=== PATIENT | male | born 1980 | race Caucasian/White ===

== ENCOUNTER 2022-06-12 08:41 | Emergency (ER) | payer OTHER, SELFPAY ==
[2022-06-12 09:59] VITALS: BP 126/79; PULSE 101; RESP 18; TEMP 37.7; O2SAT 101
--- NOTE | 2022-06-12 10:19 | ED.GENADULT ---
HPI - General Adult General Chief complaint: Upper Respiratory Infection Stated complaint: flu like symptoms Time Seen by Provider: 06/12/22 10:19 Source: patient, RN notes reviewed and old records reviewed Mode of arrival: ambulatory Limitations: no limitations History of Present Illness HPI narrative: 41 year old male presents to [facility] with complaints of having a scratchy throat 3 days ago which has now resolved but continues with cough and congestion. Patient reports that he has been running a fever with highest fever noted to ne 101.8F, has been taking Tylenol and also DayQuil for his symptoms.Patient reports some chills and sweats but denies any body aches., Patient has not had COVID vaccinations or Flu shot. Patient reports that he has been expectorating some greenish phlegm and has had sinus drainage also denies any history of seasonal allergies. MD complaint: cough and congestion Onset (ago): day(s) (3) Severity scale (1-10): 3 Treatments prior to arrival: other (DayQuil and Tylenol) Related Data Allergies Allergy/AdvReac Type Severity Reaction Status Date / Time No Known Allergies Allergy Verified 06/12/22 10:13 Review of Systems Review of Systems: CONSTITUTIONAL: Reports malaise, chills, sweats, or fever. EYES: Denies visual changes, redness, or discharge. ENT: Reports rhinorrhea, congestion, no sinus pain,no otalgia scratchy throat which has resolved. CARDIOVASCULAR: Denies chest pain, palpitations, or edema. RESPIRATORY: Reports cough.? Denies acute dyspnea. GASTROINTESTINAL: Denies abdominal pain, nausea, vomiting, diarrhea SKIN: Denies rash or itching. MUSCULOSKELETAL: Denies myalgia. NEUROLOGIC: Denies headache. All systems reviewed & are unremarkable except as noted in HPI and below PMFSH Surgical History Surgical History (Updated 06/12/22 @ 10:32 by Abby Fernandez NP) History of tonsillectomy and adenoidectomy Family History Family History (Updated 11/07/14 @ 09:36 by DOCTOR UNKNOWN) Other Diabetes mellitus Social History Social History Smoking status: Smoker, status unknown Alcohol intake: current Comments At time of signature, agree with nursing past medical, surgical, social and family history. There is no relevant family history pertinent to the presenting complaint Exam Narrative: GENERAL: Well-appearing, well-nourished, and in no acute distress. HEAD: Normocephalic EYES: PERRLA, conjunctivae clear ENT: Nares clear, turbinates edematous and erythematous, clear discharge. Mucous membranes moist. TM pearly hernandez with dull light reflex bilaterally; no tragal tenderness. Oropharynx erythematous without lesions. Tonsils not present and throat without exudate, no drooling, no hoarseness, no trismus, uvula midline.some post nasal drainage noted NECK: Supple. No lymphadenopathy CHEST: Clear to auscultation, breath sounds equal. No wheezing, rhonchi, rales, or stridor. No respiratory distress, speaks in full sentences. no tachypnea noted, SAO2 100% on room air HEART: Regular rate and rhythm. No murmur heard. SKIN: Warm, dry, no rash. NEURO: Alert and oriented x3. PSYCH: Normal mood and affect Course Course Emergency Course: Patient is aware of diagnosis, understands and agrees to treatment plan.? Anticipatory guidance given.? Patient agrees to follow-up as directed and is aware of reasons to seek care at the emergency department. Portions of this record may have been created with voice recognition software Level of Care: Express Care Visit Vital Signs Vital signs: Vital Signs Temperature 37.7 C H 06/12/22 09:59 Pulse Rate 101 H 06/12/22 09:59 Respiratory Rate 18 06/12/22 09:59 Blood Pressure 126/79 06/12/22 09:59 Pulse Oximetry 101 H 06/12/22 09:59 Oxygen Delivery Room Air 06/12/22 09:59 Temperature 37.7 C H 06/12/22 09:59 Pulse Rate 101 H 06/12/22 09:59 Respiratory Rate 18 06/12/22 09:59 Blood Pressure 1
== END 2022-06-12 10:41 | disposition home or self-care (01) ==
PROVIDERS: Emergency Provider Registered Nurse
DX: J06.9 Acute upper respiratory infection, unspecified (principal)
CPT/HCPCS: 99213; G0463

== ENCOUNTER 2024-07-15 11:00 | Emergency (ER) | payer OTHER, SELFPAY ==
--- NOTE | ~2024-07-15 | XR_ITS ---
XR foot LT min 3V Ordering provider: Mandeep Sewell APRN History: . heel pain/redness swelling over achilles . Comparison: None. FINDINGS: BONES: No acute fracture or dislocation. JOINT SPACES: Normal. No tarsal coalition. SOFT TISSUES: Ossification of the insertion of the tendo Achilles. IMPRESSION: No acute osseous abnormality left foot. Reviewed, dictated and finalized at location A.
--- NOTE | 2024-07-15 11:01 | ED.EXTPRO ---
HPI - Extremity Problem General Chief complaint: Extremity Problem,Nontraumatic Stated complaint: L foot pain Time Seen by Provider: 07/15/24 11:01 Source: patient Mode of arrival: ambulatory Limitations: no limitations History of Present Illness HPI Narrative: Henrik is a 43-year-old male patient presenting to the clinic today with complaints of left heel pain and foot swelling times 3-4 days. No fevers, chills, body aches. No injury to the left foot. Is concerned that he may have Achilles tendinitis or a heel spur. States he wears tennis shoes normally. No history of blood clotting disorders, denies hormone therapy, no recent long travel Related Data Allergies Allergy/AdvReac Type Severity Reaction Status Date / Time No Known Allergies Allergy Verified 07/15/24 11:05 Review of Systems Review of Systems: Pertinent positives per HPI. Patient denies any fever, chills, rash, headache, visual changes, dizziness, cough, runny nose, sore throat, shortness of breath, chest pain, palpitations, nausea, vomiting, diarrhea, constipation, abdominal pain, or any urinary issues. RITIKASH Surgical History Surgical History History of tonsillectomy and adenoidectomy Family History Family History (Updated 11/07/14 @ 09:36 by DOCTOR UNKNOWN) Other Diabetes mellitus Social History Social History Smoking status: Smoker, status unknown Alcohol intake: current Comments At the time of my signature, I reviewed and agree with the nursing past medical, surgical, social, and family history. There is no relevant family history pertinent to the patient complaint. Exam Narrative: General: Well-developed, well nourished, in no apparent distress Head: Normocephalic, atraumatic. Cardio: Regular rate and rhythm, s1 and s2 normal, no murmur appreciated. Resp: Clear to auscultation bilaterally, no rhonchi, rales, wheezing or rubs. Musculoskeletal: No deformity, pain with dorsal flexion against resistance to the posterior heel/ankle, tender to palpation over the Achilles tendon with localized redness and erythema, negative Solange sign, grossly normal range of motion, muscle strength strong and equal, peripheral pulse strong, 1+ pitting edema in the left foot, no cyanosis, very painful to ambulate, sitting in a wheelchair Course Course Emergency Course: Portions of this record may have been created with voice recognition software. Level of Care: Express Care Visit Vital Signs Vital signs: Vital Signs Temperature 36.9 C 07/15/24 11:13 Pulse Rate 114 H 07/15/24 11:13 Respiratory Rate 18 07/15/24 11:13 Blood Pressure 130/98 H 07/15/24 11:13 Pulse Oximetry 100 07/15/24 11:13 Oxygen Delivery Room Air 07/15/24 11:13 Temperature 36.9 C 07/15/24 11:13 Pulse Rate 114 H 07/15/24 11:13 Respiratory Rate 18 07/15/24 11:13 Blood Pressure 130/98 H 07/15/24 11:13 Pulse Oximetry 100 07/15/24 11:13 Oxygen Delivery Room Air 07/15/24 11:13 Vital signs reviewed MDM - Extremity (Nontraumatic) MDM Narrative Medical decision making narrative: At the time of visit patient is resting comfortably on the exam table. Patient appears to be nontoxic. Diagnostics: X-ray of the left foot shows no acute osseous abnormality. Does show some ossification of the insertion of Achilles tendon Plan: I suspect patient likely has Achilles tendinitis. Prescription for Medrol Dosepak was sent to the pharmacy. Use crutches as discussed. Doug wrap was applied Supportive measures were discussed with the patient and they voiced understanding discharge instructions and agrees to treatment plan. Return precautions reviewed Differential Diagnosis Differential diagnosis: Likely gout, cellulitis, superficial thrombophlebitis, lower extremity edema, deep vein thrombosis of lower extremity and other (Tendinitis, bone spur) Imaging Data Radiologist's impression: ITS Impressions Foot X-Ray 07/15/24 11:35 IMPRESSION: No acute osseous abnormality left foot. Discharge Plan Discharge Clinical Impression: Achilles tendinitis Qualifiers: Laterality: left Qualified Code(s): M76.62 - Achilles tendinitis, left leg Patient Disposition: Home Condition: Stable Instructions: Antibiotic Form, Achilles Tendinitis (ED), Calcific Tendinitis (ED) Additional Instructions: X-rays negative for any sign of fracture or malalignment-does show some ossification of the insertion of Achilles tendon Rest, ice, elevate, and wear doug wrap as directed Use crutches as directed Tylenol/motrin for pain as discussed. Take Medrol Dosepak as prescribed Gradually bear weight No running or sports until healed. Follow up with your PCP if symptoms persist more than 1 week. Patient Language: Wolof Prescriptions: New methylprednisolone [Medrol (Hiro)] 4 mg tablets,dose pack See Rx Instructions PO .COMPLEX Qty: 21 0RF Rx Instructions: orally per package directions Follow-up/Referrals: Eitan Buckner DPM [Physician] - 2 Days (Left Achilles tendinitis) PHYSICIAN,GROUNDSKEEPING MAINTENANCE [Primary Care Provider] - Time of Disposition: 11:43 Quality NIHSS Nursing Documentation ED NIHSS nursing documentation: reviewed/agree
--- OUTSIDE RECORDS SUMMARY | 2024-07-15 11:03 | XMS_ITS | Continuity of Care Document ---
Author Organization [facility] Address [address] [place] [address] Phone Care Team Providers Care Water Treatment Plant Operator Name Role Phone Justino Pryor Unavailable Unavailable Procedures Procedure Date Post-op Follow-up Visit Post-op Follow-up Visit Post-op Follow-up Visit Post-op Follow-up Visit Allegretto-Lasik Comanaged Allegretto-Lasik Comanaged No Charge Refractive Evaluation 010 Advance Directives Directive Yes / No Effective Date File Name No Information Encounters Encounter Description Practice Location Reason(s) For Visit Diagnoses Date Provider Providers Copied on Encounter [facility], [address] [place] [address] [address], [place], [place], [id number], [place] tel:[phone] [facility] No Information 0 Krishnasamy Justino. [address] [facility] [address], [address], [place]. tel:[phone] [facility], [address], [place], [place], [address], [place] tel:[phone] [facility] No Information 0 Krishnasamy Justino. [address] [facility] [address], [place], [address], [place]. tel:[phone] [facility], [address] [place] [address] [address], [place], [place], [id number], tel:[phone] [facility] No Information Apr-3 0-201 0 Krishnasamy Justino. [address] [place] [address], [facility], . tel:[phone] [facility], [address] [place] [address] [address], [place], [place], [address], tel:[phone] [facility] No Information May-2 3-201 0 Krishnasamy Justino. [address] [place] [address], [facility], . tel:[phone] [facility], [address] [place] [address] [address], [place], [place], [address], tel:[phone] [facility] No Information May-2 2-201 0 Krishnasamy Justino. [address] [place] [address], [facility], [place]. tel:[phone] Referring Provider: Justino leroy, [address] [place] [address], [facility]. tel:[phone] [facility], [address] [place] [address] [address], [place], [place], [address], tel:[phone] [facility] No Information May-1 4-201 0 Krishnasamy Justino. [address] [place] [address], [facility], [place]. tel:[phone] Family History Family Member Type Diagnosis Age At Onset No Information Payers Payer name Insurance type Covered democrat ID Authoriza tion(s) No Information Social History Type Description Quantity Date Captured Comments Sex Male Smoking Status No Information Chief Complaint And Reason For Visit No Information Reason For Referral Reason For Referral No Information History Of Present Illness Encounter Date Complaint History Of Prese nt Illness No Information Functional Status Date Functional Assessmen t No Information Instructions Date Instruction Additional Infor mation No Information Assessments Type Assessment Date No Information Patient Care Teams Name Effective Dates (start - stop) Status Members No Information
--- OUTSIDE RECORDS SUMMARY | 2024-07-15 11:03 | XMS_ITS | Continuity of Care Document ---
Author Organization [facility] Address [address] [place] [address] Phone Care Team Providers Care [employer] Consultant Name Role Phone Benedicto Lopez MD Unavailable Unavailable Allergies, Adverse Reactions, Alerts Substance Reaction Status Criticality No Known Allergies Active No Inform ation Medications Medication Instructions Dosage Effective Dates (start - stop) Status Comments No Drug Therapy Prescribed Procedures Procedure Date OFFICE/OUTPATIENT VISIT, EST PREV VISIT, NEW, AGE 18-39 OFFICE/OUTPATIENT VISIT, NEW Advance Directives Directive Yes / No Effective Date File Name No Information Encounters Encounter Description Practice Location Reason(s) For Visit Diagnoses Date Provider Providers Copied on Encounter OFFICE/OUTPA TIENT VISIT, EST [facility], [address] [place], [place], [id number], [place] tel:[phone] [facility] obesity1 (chief complaint) lab (chief complaint) sleep apnea1 (chief complaint) HLP (chief complaint) HyperlipidemiaBody mass index (BMI) 38.0-38.9, adult June- 0-201 7 John Diane. [address], [place], [place], [address] , [place]. tel:[phone] Referring Provider: Benedicto Lopez, [address], [place], [place], [address]. tel:[phone] PREV VISIT, NEW, AGE 18-39 [facility], [address], [place], [place], [address], [place] tel:[phone] [facility] Physical (chief complaint) Encounter for general adult medical exam w abnormal findingsBody mass index (BMI) 38.0-38.9, adultEdema May- 5201 7 John Diane. [address], [place], [place], [address] , [place]. tel:[phone] Family History Family Member Type Diagnosis Age At Onset Brother Problem (finding) Alive and well Father Problem (finding) Alive and well Mother Problem (finding) Alive and well Payers Payer name Insurance type Covered libertarian ID Authoriza tion(s) No Information Social History Type Description Quantity Date Captured Comments Alcohol Use Details Caffeine Use Details Unknown Tobacco Use Status Never smoked tobacco 2016 Smoking Status Never smoker Sex Male Vital Signs Date / Time: Height Weight BMI Pulse Rate Blood Pressure Temperature Respiratory Rate Body Surface Area Head Circumference BMI percentile Pulse Ox Inhaled Ox 4:33 PM 167.64 cm 236.80 lbs 38.2 2 kg/m eter (2) 76 /min 135/85 mm[Hg] 98.3 F 18 /min Chief Complaint And Reason For Visit From encounter dated '07/23/2016 15:30'. obesity1 (chief complaint). Description: Pt is overweight. His BMI is 38. Pt has been diet and exercising and his lab is ok. lab (chief complaint). Description: Pt has normal lab sleep apnea1 (chief complaint). Description: Pt denies any daytime fatigue or any snoring. Pt denies any breathing issue at night HLP (chief complaint). Description: Pt has mild high LDL. Rest of lab ok Plan Of Treatment Date Type Action Status No Information History Of Present Illness Encounter Date Complaint History Of Prese nt Illness obesity1 Pt is overweight . His BMI is 38. Pt has been diet and exercising and his lab is ok. lab Pt has normal la b sleep apnea1 Pt denies any da ytime fatigue or any snoring. Pt denies any breathing issue at night HLP Pt has mild high LDL. Rest of lab ok Physical Pt needs annual physical. Pt states that he has diffiuclty losing weight. pt wants to get his thyroid checked Pt diet and exercise but not able to lsoe weight. Pt states that he notices hand and foot swelling intermittently during last two years. Pt does not think there is connection with food or any activity. Pt denies any fatigue. Pt sleeps ok. Pt denies any snoring. Pt denies any other complaints Medications Administered Medication Instructions Dosage Effective Dates (start - stop) Status Comments No Drug Therapy Prescribed Instructions Date Instruction Additional Infor mation Prescribed Activity and Exercise Education Related to Dietary Surveillance and Counseling Prescribed Diet Educ ation/Lifestyle Education Regarding Diet Related to Dietary Surveillance and Counseling Prescribed Activity and Exercise Education Related to Dietary Surveillance and Counseling Prescribed Diet Educ ation/Lifestyle Education Regarding Diet Related to Dietary Surveillance and Counseling Assessments Type Assessment Date assessment Hyperlipidemia assessment Body mass index (BMI) 38.0-38.9, adult Mental Status Date Cognitive Assessment Orientation - [employer] ed to time, place, person, situation.
--- OUTSIDE RECORDS SUMMARY | 2024-07-15 11:08 | XMS_ITS | Continuity of Care Document ---
Author Organization [facility] Address [address] [place] [address] [place] [address] Phone Care Team Providers Care Box Annealer Name Role Phone Benedicto Lopez MD Unavailable [...] Copied on Encounter OFFICE/OUTPA TIENT VISIT, EST [facility], [address] [place], [address], [place] tel:[phone] [facility] obesity1 (chief complaint) lab (chief complaint) sleep apnea1 (chief complaint) HLP (chief complaint) HyperlipidemiaBody mass index (BMI) 38.0-38.9, adult June- 0-201 7 John Diane. [address], [place], [place], [address] , [place]. tel:[phone] Referring Provider: Benedicto Lopez, [address], [place], [place], [address]. tel:[phone] PREV VISIT, NEW, AGE 18-39 [facility], [address], [place], [place], [address], [place] tel:[phone] [facility] Physical (chief complaint) Encounter for general adult medical exam w abnormal findingsBody mass index (BMI) 38.0-38.9, adultEdema May- 5201 7 John Diane. [address], [place], [place], [address] , [place]. tel:[phone] Family History Family Member Type Diagnosis Age [...] Mental Status Date Cognitive Assessment Orientation - Rose ed to time, place, person, situation.
--- OUTSIDE RECORDS SUMMARY | 2024-07-15 11:08 | XMS_ITS | Continuity of Care Document ---
Author Organization [facility] Address [address] [place] [address] Phone Care Team Providers Care Lottery Office Manager Name Role Phone Justino Pryor Unavailable Unavailable Procedures Procedure Date Post-op Follow-up Visit Post-op Follow-up Visit Post-op Follow-up Visit Post-op Follow-up Visit Allegretto-Lasik Comanaged Allegretto-Lasik Comanaged No Charge Refractive Evaluation 010 Advance Directives Directive Yes / No Effective Date File Name No Information Encounters Encounter Description Practice Location Reason(s) For Visit Diagnoses Date Provider Providers Copied on Encounter [facility], [address] [place] [address] [address], [place], [place], [id number], [place] tel:[phone] [facility] No Information 0 Krishnasamy Justino. [address] [facility], [address], [place]. tel:[phone] [facility], [address], [place], [place], [address], [place] tel:[phone] [facility] No Information 0 Krishnasamy Justino. [address] [facility] [address], [place], [address], [place]. tel:[phone] [facility], [address] [place] [address] [address], [place], [place], [address], tel:[phone] [facility] No Information Apr-3 0-201 0 Krishnasamy Justino. [address] [place] [address], [facility], . tel:[phone] [facility], [address] [place] [address] [address], [place], [place], [address], tel:[phone] [facility] No Information May-2 3-201 0 Krishnasamy Justino. [address] [place] [address], [facility], . tel:[phone] [facility], [address] [place] [address] [address], [place], [place], [address], tel:[phone] [facility] No Information May-2 2-201 0 Krishnasamy Justino. [address] [place] [address], [facility], [place]. tel:[phone] Referring Provider: Justino leroy, [address] [place] [address], [facility]. tel:[phone] [facility], [address] [place] [address] [address], [place], [place], [address], tel:[phone] [facility] No Information May-1 4-201 0 Krishnasamy Justino. [address] [place] [address], [facility], [place]. tel:[phone] Family History Family Member Type Diagnosis Age At Onset No Information Payers Payer name Insurance type Covered green party ID Authoriza tion(s) No Information Social History [...]
[2024-07-15 11:13] VITALS: BP 130/98; PULSE 114; RESP 18; TEMP 36.9; O2SAT 100
== END 2024-07-15 11:52 | disposition home or self-care (01) ==
PROVIDERS: Emergency Provider Nurse Practitioner Family
DX: M76.62 Achilles tendinitis, left leg (principal)
CPT/HCPCS: 73630; 99213; G0463